=== PATIENT | female | born 1960 | race Hispanic/Latino ===

== ENCOUNTER 2018-05-11 20:19 | Emergency (ER) | payer OTHER ==
[~2018-05-11 20:19] MED LIST: CIPR-278 PO; HYDR12.530 PO; SIME80TA PO
[2018-05-11] MEDS ORDERED: ACETAMINOPHEN 325 MG TAB ONE (21:10)
== END 2018-05-11 22:11 | disposition home or self-care (01) ==
LOC: EDH 20:19
DX: S13.4XXA Sprain of ligaments of cervical spine, initial encounter (principal); S09.8XXA Other specified injuries of head, initial encounter; I10 Essential (primary) hypertension; V49.59XA Passenger injured in collision with other motor vehicles in traffic accident, initial encounter; Y93.89 Activity, other specified; Y92.488 Other paved roadways as the place of occurrence of the external cause; Y99.8 Other external cause status
CPT/HCPCS: 72040

== ENCOUNTER 2021-03-06 21:19 | Emergency (ER) | payer MEDICAID, OTHER ==
[2021-03-06] MEDS ORDERED: KETOROLAC 30MG VIAL (30MG/ML) ONE (21:52)
[2021-03-06 22:19] LABS: BASOPHILS % (AUTO) 0.9 % (0.0-5.0); HEMATOCRIT 39.7 % (36-48); LYMPHOCYTES % (AUTO) 37.2 % (21.0-51.0); MEAN CORPUSCULAR HEMOGLOBIN 29.2 pg (27.0-33.0); MEAN CORPUSCULAR HGB CONC 34.8 g/dL (32.0-36.0); MEAN CORPUSCULAR VOLUME 83.9 fL (79-99); MONOCYTES % (AUTO) 6.9 % (3.0-13.0); NEUTROPHILS % (AUTO) 45.9 % (40.0-77.0); PLATELET COUNT (AUTO) 191 K/uL (130-400); RED BLOOD CELL COUNT(AUTO) 4.73 MIL/uL (4.00-5.50); RED CELL DISTRIBUTION WIDTH 13.2 % (11.0-15.5); WHITE BLOOD COUNT (AUTO) 6.8 K/uL (4.8-10.8)
[2021-03-06 22:27] LABS: CREATININE 0.8 mg/dL (0.5-1.5); POTASSIUM 3.5 mmol/L (3.5-5.1)
[2021-03-06 22:32] LABS: ALBUMIN 3.8 g/dL (3.5-5.0); BILIRUBIN,TOTAL 0.4 mg/dL (0.2-1.0)
== END 2021-03-06 23:33 | disposition home or self-care (01) ==
LOC: EDH 21:19
DX: L52 Erythema nodosum (principal)
CPT/HCPCS: 36415; 80053; 85025; 96374; 99283; J1885